=== PATIENT | male | born 1950 | race African-American/Black ===

== ENCOUNTER 2018-12-29 10:20 | Inpatient (IN) | payer MEDICARE, MEDICAID ==
[~2018-12-29] VITALS: Ht 182.9 cm; Wt 90.8 kg
[~2018-12-29 10:20] MED LIST: SORBITOL 70% SOLN 30ML PO SCH
[2018-12-29] MEDS ORDERED: IPRATROPIUM BROMIDE (0.02%) 0.5MG/2.5ML NEB HHN STA (11:21)
[2018-12-29] MEDS ORDERED: METHYLPREDNISOLONE SOD SUCC 125 MG/2 ML VIAL IV STA (11:21)
[2018-12-29] MEDS ORDERED: ALBUTEROL (0.083%) 2.5MG/3ML NEB HHN STA (11:21)
[2018-12-29] MEDS ORDERED: MAGNESIUM 2 G PREMIX 50 ML IV ONE (11:30)
[2018-12-29 11:41] LABS: CHLORIDE 103 mEq/L (98-107); MEAN CORPUSCULAR HEMOGLOBIN 21.9 pg (28.0-32.0); MEAN CORPUSCULAR VOLUME 76.4 fL (80.0-94.0); MEAN PLATELET VOLUME 8.4 fl (7.4-10.4); PLATELET 77 x1000/uL (130-400); RED BLOOD CELL COUNT 2.58 mill/uL (4.7-6.1); RED CELL DISTRIBUTION WIDTH 18.4 % (11.6-14.6)
[2018-12-29 11:43] LABS: HEMATOCRIT. 19.7 % (42.0-52.0); HEMOGLOBIN. 5.7 g/dL (14.0-18.0); INR 1.4
[2018-12-29] MEDS ORDERED: VANCOMYCIN 1 G PREMIX 200 ML IV STA ×2 (12:02→19:34)
[2018-12-29 12:13] LABS: PLATELET ESTIMATE SLIGHTLY DECREASED
[2018-12-29] MEDS ORDERED: PIPERACILLIN/TAZOBACTAM 3.375GM/50ML PREMIX IV ONE (12:15)
[2018-12-29] MEDS ORDERED: PIPERACILLIN/TAZ 3.375G PREMIX 50 ML IV SCH (12:15)
[2018-12-29] MEDS ORDERED: SODIUM CHLORIDE 0.9% 1000ML BAG (SEPSIS BOLUS) IV ONE (12:15)
[2018-12-29] MEDS ORDERED: IPRATROPIUM/ALBUTEROL 0.5-3(2.5)MG/3ML NEB INH PRN (13:15)
[2018-12-29] MEDS ORDERED: DOCUSATE SODIUM 100MG CAPSULE PO PRN (13:15)
[2018-12-29] MEDS ORDERED: DIPHENHYDRAMINE 50MG/ML VIAL IV PRN (13:15)
[2018-12-29] MEDS ORDERED: CLONIDINE 0.1MG TABLET PO PRN (13:15)
[2018-12-29] MEDS ORDERED: GUAIFENESIN 200MG/10ML SUGAR FREE UDC PO PRN (13:15)
[2018-12-29] MEDS ORDERED: ACETAMINOPHEN 325MG TABLET PO PRN (13:15)
[2018-12-29] MEDS ORDERED: ONDANSETRON HCL 4MG/2ML INJ IV PRN (13:15)
[2018-12-29 14:08] LABS: PHOSPHORUS 3.6 mg/dL (2.5-4.9)
[2018-12-29 14:12] LABS: CREATINE KINASE MB FRACTION 3.1 ng/mL (0.5-3.6)
[2018-12-29 14:29] LABS: FERRITIN 11 ng/mL (22-322)
[2018-12-29 14:41] LABS: HEPATITIS B SURFACE ANTIGEN NEGATIVE
[2018-12-29 15:09] LABS: HEPATITIS A AB IGM NEGATIVE (NEGATIVE)
[2018-12-29] MEDS ORDERED: SORBITOL 70% SOLN 30ML PO ONE (15:45)
[2018-12-29 19:25] LABS: CLARITY URINE CLEAR (CLEAR); COLOR URINE DARK YELLOW (YELLOW); KETONES URINE 1+ (NEGATIVE); LEUKOCYTE ESTERASE URINE NEGATIVE (NEGATIVE); NITRITE URINE NEGATIVE (NEGATIVE); OCCULT BLOOD URINE NEGATIVE (NEGATIVE); PROTEIN URINE NEGATIVE (NEGATIVE); SPECIFIC GRAVITY URINE 1.027 (1.005-1.030)
[2018-12-29] MEDS ORDERED: SORBITOL 70% SOLN 30ML PO NR (22:15)
[2018-12-29 22:30] VITALS: BP 138/66
[2018-12-30] VITALS: BP 160/72
[2018-12-30] MEDS: PANTOPRAZOLE SODIUM 40 MG/VIAL IV SCH ×3 (00:29→21:55)
[2018-12-30] MEDS ORDERED: SORBITOL 70% SOLN 30ML PO NR (02:15)
[2018-12-30 04:00] VITALS: BP 138/61
[2018-12-30] MEDS ORDERED: SORBITOL 70% SOLN 30ML PO SCH (04:00)
[2018-12-30 08:00] VITALS: BP 141/62
[2018-12-30] MEDS ORDERED: PNEUMOCOCCAL 23-VAL P-SAC VAC 0.5 ML IM ONE (08:00)
[2018-12-30 08:08] LABS: CHLORIDE 109 mEq/L (98-107)
[2018-12-30 08:14] LABS: BASOPHILS % 0.1 % (0.0-2.0); LYMPHOCYTES % 9.4 % (20.0-50.0); MEAN CORPUSCULAR HEMOGLOBIN 24.1 pg (28.0-32.0); MEAN CORPUSCULAR VOLUME 79.5 fL (80.0-94.0); MEAN PLATELET VOLUME 9.5 fl (7.4-10.4); MONOCYTES % 14.9 % (2.0-8.0); NEUTROPHILS % 75.6 % (40.0-76.0); PLATELET 63 x1000/uL (130-400); RED BLOOD CELL COUNT 2.59 mill/uL (4.7-6.1); RED CELL DISTRIBUTION WIDTH 19.4 % (11.6-14.6)
[2018-12-30 08:23] LABS: LDL CHOLESTEROL 32 mg/dL (5-100)
[2018-12-30 08:24] LABS: HDL CHOLESTEROL 39 mg/dL (40-59)
[2018-12-30 08:25] LABS: HEMOGLOBIN. 6.2 g/dL (14.0-18.0)
[2018-12-30 08:26] LABS: HEMATOCRIT. 20.6 % (42.0-52.0)
[2018-12-30] MEDS: HYDROCODONE/ACETAMINOPHEN 5/325MG TABLET PO PRN ×2 (09:22→22:32)
[2018-12-30] MEDS ORDERED: INFLUENZA VIRUS VACCINE(AFLURIA) 0.5ML SYR IM ONE (10:00)
[2018-12-30 10:56] VITALS: BP 146/63
[2018-12-30 11:56] VITALS: BP 128/51
[2018-12-30] MEDS ORDERED: MORPHINE SULFATE 4 MG/ML CPJ (NOT FOR IM USE) IV SCH (12:00)
[2018-12-30] MEDS ORDERED: HYDROMORPHONE HCL/PF 2MG/ML CPJ IV PRN (14:45)
[2018-12-30] MEDS ORDERED: ONDANSETRON HCL 4MG/2ML INJ IV PRN (14:45)
[2018-12-30] MEDS ORDERED: FENTANYL CITRATE/PF 50MCG/ML 2ML VIAL IV PRN (14:45)
[2018-12-30] MEDS ORDERED: MEPERIDINE HCL/PF 25MG/ML CPJ IV PRN (14:45)
[2018-12-30] MEDS ORDERED: MORPHINE SULFATE 4 MG/ML CPJ (NOT FOR IM USE) IV PRN (14:45)
[2018-12-30] MEDS ORDERED: MIDAZOLAM HCL 2 MG/2 ML VIAL ONE (14:57)
[2018-12-30] MEDS ORDERED: PROPOFOL 200MG/20ML VIAL IV ONE ×2 (14:57→16:04)
[2018-12-30] MEDS ORDERED: SIMETHICONE 40 MG/0.6 ML 30ML ONE (15:06)
[2018-12-30] MEDS ORDERED: PHENYLEPHRINE HCL 10 MG/ML 1ML (IV VIAL) IV ONE (15:09)
[2018-12-30] MEDS ORDERED: PROPOFOL 10MG/ML 100ML 0 ML IV ONE (15:52)
[2018-12-30] MEDS: FERROUS SULFATE 325MG TABLET PO SCH (18:28)
[2018-12-30 18:38] LABS: INR 1.5
[2018-12-30 19:01] LABS: HEMATOCRIT. 25.9 % (42.0-52.0); HEMOGLOBIN. 8.1 g/dL (14.0-18.0); MEAN CORPUSCULAR HEMOGLOBIN 25.6 pg (28.0-32.0); MEAN CORPUSCULAR VOLUME 81.9 fL (80.0-94.0); MEAN PLATELET VOLUME 9.7 fl (7.4-10.4); PLATELET 58 x1000/uL (130-400); RED BLOOD CELL COUNT 3.16 mill/uL (4.7-6.1); RED CELL DISTRIBUTION WIDTH 19.2 % (11.6-14.6)
[2018-12-30 20:00] VITALS: BP 121/66
[2018-12-30 20:23] LABS: NUCLEATED RED BLOOD CELLS 1 /100 WBC; PLATELET ESTIMATE DECREASED
[2018-12-30 23:22] LABS: HEMATOCRIT 22.8 % (42.0-52.0); HEMOGLOBIN 7.3 g/dL (14.0-18.0)
[2018-12-31] VITALS: BP 118/64
[2018-12-31] MEDS: HYDROCODONE/ACETAMINOPHEN 5/325MG TABLET PO PRN ×3 (03:00→17:00)
[2018-12-31 04:00] VITALS: BP 131/61
[2018-12-31 06:14] LABS: HIV SCREEN 4G Non Reactive (Non Reactive)
[2018-12-31 07:45] LABS: BASOPHILS % 0.2 % (0.0-2.0); EOSINOPHILS % 0.3 % (0.0-5.0); HEMATOCRIT. 23.5 % (42.0-52.0); HEMOGLOBIN. 7.2 g/dL (14.0-18.0); LYMPHOCYTES % 14.1 % (20.0-50.0); MEAN PLATELET VOLUME 9.4 fl (7.4-10.4); MONOCYTES % 8.2 % (2.0-8.0); NEUTROPHILS % 77.2 % (40.0-76.0); RED CELL DISTRIBUTION WIDTH 19.8 % (11.6-14.6)
[2018-12-31 07:51] LABS: CHLORIDE 109 mEq/L (98-107); PLATELET 48 x1000/uL (130-400)
[2018-12-31 08:00] VITALS: BP 138/63
[2018-12-31] MEDS: PANTOPRAZOLE SODIUM 40 MG/VIAL IV SCH ×2 (09:16→21:18)
[2018-12-31] MEDS: FERROUS SULFATE 325MG TABLET PO SCH ×3 (09:16→16:59)
[2018-12-31 12:00] VITALS: BP 127/57
[2018-12-31] MEDS ORDERED: PANT40VI IV (18:33)
[2018-12-31] MEDS ORDERED: FERR325T23 PO (18:33)
[2018-12-31 23:58] VITALS: BP 144/63
[2019-01-01] VITALS (10 sets, daily range): BP systolic 119–154; BP diastolic 57–89
[2019-01-01 09:20] LABS: HEMATOCRIT. 26.9 % (42.0-52.0); HEMOGLOBIN. 8.5 g/dL (14.0-18.0); MEAN CORPUSCULAR HEMOGLOBIN 25.5 pg (28.0-32.0); MEAN CORPUSCULAR VOLUME 80.6 fL (80.0-94.0); RED BLOOD CELL COUNT 3.34 mill/uL (4.7-6.1); RED CELL DISTRIBUTION WIDTH 20.3 % (11.6-14.6)
[2019-01-01 09:21] LABS: BASOPHILS % 0.4 % (0.0-2.0); EOSINOPHILS % 0.6 % (0.0-5.0); LYMPHOCYTES % 18.1 % (20.0-50.0); MEAN PLATELET VOLUME 9.7 fl (7.4-10.4); MONOCYTES % 10.3 % (2.0-8.0); NEUTROPHILS % 70.6 % (40.0-76.0)
[2019-01-01 09:26] LABS: PLATELET 48 x1000/uL (130-400)
[2019-01-01] MEDS: PANTOPRAZOLE SODIUM 40 MG/VIAL IV SCH (09:30)
[2019-01-01] MEDS: FERROUS SULFATE 325MG TABLET PO SCH ×2 (09:30→13:59)
[2019-01-01] MEDS: HYDROCODONE/ACETAMINOPHEN 5/325MG TABLET PO PRN ×2 (09:31→13:58)
== END 2019-01-01 16:00 | disposition home or self-care (01) | DRG 253 ==
LOC: ER 10:20 → 5WST 12:59 → EDBEDREQ 13:01 → ENRESERV 20:59
PROVIDERS: ADMIT Internal Medicine; ATTEND Internal Medicine
PROC: 30233N1 Transfusion of Nonautologous Red Blood Cells into Peripheral Vein, Percutaneous Approach (ICD-10-PCS; 2018-12-29)
PROC: 0DB68ZX Excision of Stomach, Via Natural or Artificial Opening Endoscopic, Diagnostic (ICD-10-PCS; principal; 2018-12-30)
PROC: 0DJD8ZZ Inspection of Lower Intestinal Tract, Via Natural or Artificial Opening Endoscopic (ICD-10-PCS; 2018-12-30)
DX: K92.0 Hematemesis (principal); E44.0 Moderate protein-calorie malnutrition; E87.2 Acidosis; D68.9 Coagulation defect, unspecified; D70.9 Neutropenia, unspecified; G20 Parkinson's disease; D69.6 Thrombocytopenia, unspecified; J45.901 Unspecified asthma with (acute) exacerbation; J44.9 Chronic obstructive pulmonary disease, unspecified; D50.0 Iron deficiency anemia secondary to blood loss (chronic); B18.2 Chronic viral hepatitis C; K64.4 Residual hemorrhoidal skin tags; K64.8 Other hemorrhoids; K74.60 Unspecified cirrhosis of liver; M19.90 Unspecified osteoarthritis, unspecified site; Z68.27 Body mass index [BMI] 27.0-27.9, adult
CPT/HCPCS: 36415; 71045; 74176; 80048; 80061; 82270; 82550; 82553; 82728; 83036; 83540; 83550; 83605; 83735; 83880; 84100; 84443; 84484; 85014; 85018; 85384; 86677; 86705; 86709; 86803; 86850; 86900; 86920; 87340; 87389; 90686; 90732; 93005; 93970; 94644; 96365; 96375; 97116; 97162; 97166; 97530; 99291; C9113; J2250; J2270; J2370; J2543; J2704; J2930; J3370; J3475; J7030; J7040; J7050; J7611; P9016